=== PATIENT | female | born 1955 | race Caucasian/White ===

== ENCOUNTER 2018-10-04 06:33 | Day surgery (SDC) | payer MEDICAID ==
[~2018-10-04] VITALS: Ht 162.6 cm; Wt 47.4 kg
[2018-10-04] MEDS ORDERED: LACTATED RINGERS 1,000 ML IV SCH (07:25)
[2018-10-04] MEDS ORDERED: VARE1TAB20 PO (07:28)
[2018-10-04] MEDS ORDERED: LISI30TA4 PO (07:28)
[2018-10-04] MEDS ORDERED: ESOM40CA PO (07:28)
[2018-10-04] MEDS ORDERED: VARE0.5T PO (07:28)
[2018-10-04 07:53] VITALS: BP 138/83
[2018-10-04] MEDS ORDERED: FENTANYL PF 100 MCG/2ML IV PRN (08:00)
[2018-10-04] MEDS ORDERED: ONDANSETRON 2MG/ML, 2ML IV PRN (08:00)
[2018-10-04 08:38] LABS: ALBUMIN 4.5 g/dL (3.4-5.0); ANION GAP 7 mmol/L (5-15); CALCIUM 9.7 mg/dL (8.5-10.1); CHLORIDE 104 mmol/L (98-107)
[2018-10-04 08:42] LABS: ALANINE AMINOTRANSFERASE 22 U/L (12-78); ALKALINE PHOSPHATASE 120 U/L (45-117); BILIRUBIN,TOTAL 0.7 mg/dL (0.2-1.0); CREATININE 0.67 mg/dL (0.55-1.02); TOTAL PROTEIN 8.3 g/dL (6.4-8.2)
[2018-10-04] MEDS ORDERED: PROPOFOL 10 MG/ML, 20ML ONE (16:01)
== END 2018-10-04 09:35 | disposition home or self-care (01) ==
LOC: OUT 06:33
PROVIDERS: ATTEND Internal Medicine Geriatric Medicine
DX: C15.9 Malignant neoplasm of esophagus, unspecified (principal); K22.2 Esophageal obstruction; I10 Essential (primary) hypertension; K21.9 Gastro-esophageal reflux disease without esophagitis; F17.210 Nicotine dependence, cigarettes, uncomplicated; Z79.899 Other long term (current) drug therapy; Z80.0 Family history of malignant neoplasm of digestive organs; Z83.3 Family history of diabetes mellitus; Z82.49 Family history of ischemic heart disease and other diseases of the circulatory system
CPT/HCPCS: 36415; 43237; 80053; J2704; J7120